=== PATIENT | male | born 1955 | race Caucasian/White ===

== ENCOUNTER → 2021-10-13 11:48 | Outpatient (CLI) | payer MEDICARE, SELFPAY ==
[2021-10-13 14:40] LABS: Free T4 (Free Thyroxine) 1.31 ng/dl (0.78-2.19)
[2021-10-13 14:54] LABS: Thyroid Stimulating Hormone 0.55 uIU/mL (0.465-4.68)
== END ==
PROVIDERS: Visit Provider Internal Medicine
DX: E03.9 Hypothyroidism, unspecified (principal)
CPT/HCPCS: 36415; 84439; 84443

== ENCOUNTER → 2022-03-18 09:54 | Outpatient (CLI) | payer MEDICARE, SELFPAY ==
[2022-03-18 11:16] LABS: Basophils # 0.1 K/mm3 (0-0.2); Basophils % 2.3 % (0.1-2.0); Eosinophils # 0.1 K/mm3 (0.0-0.4); Eosinophils % 1.4 % (0.1-12.0); Hematocrit 51.5 % (42.0-52.0); Hemoglobin 16.6 g/dL (14.1-18.0); Lymphocytes # 1.1 K/mm3 (0.7-4.5); Lymphocytes % 23.9 % (10-50); Mean Corpuscular HGB Conc 32.2 g/dL (31.8-35.4); Mean Corpuscular Hemoglobin 32.3 pg (27.0-31.2); Mean Corpuscular Volume 100.3 fl (80-94); Mean Platelet Volume 8.4 fl (7.4-10.4); Monocytes # 0.4 K/mm3 (0.1-1.0); Monocytes % 8.4 % (1.7-9.3); Neutrophils # 2.8 K/mm3 (1.8-7.8); Neutrophils % 64.1 % (37.0-80.0); Platelet Count 345 K/mm3 (142-424); Red Blood Count 5.13 M/mm3 (4.60-6.20); Red Cell Distribution Width 13.1 % (11.5-17.5); White Blood Count 4.4 K/mm3 (4.8-10.8)
[2022-03-18 11:25] LABS: Microalbumin/Creatinine Ratio 26.1
[2022-03-18 11:29] LABS: Creatinine,Urine Random 34 mg/dL (Not Estab.)
[2022-03-18 12:03] LABS: Alanine Aminotransferase 38 U/L (12-78); Albumin Level 4.3 g/dl (3.5-5.0); Albumin/Globulin Ratio 1.7 (1.1-1.8); Alkaline Phosphatase 81 U/L (38-126); Anion Gap 11.4 mEq/L (5-15); Aspartate Amino Transferase 38 U/L (17-59); Bilirubin,Total 0.8 mg/dl (0.2-1.3); Blood Urea Nitrogen 22 mg/dl (9-20); Calcium 9.3 mg/dl (8.4-10.2); Carbon Dioxide 26 mmol/L (22.0-30.0); Chloride 100 mmol/L (98-107); Chol/HDL Ratio 2.4 (1-3.5); Cholesterol 170 mg/dl (140-200); Estimated Glomerular Filt Rate 75 ml/min (>60); GFR (African American) 90 ML/MIN (>60); Globulin 2.6 g/dL (1.3-3.2); Glucose 144 mg/dl (74-100); HDL Cholesterol 71 mg/dl (40-60); Potassium 4.4 mmoL/L (3.5-5.1); Sodium 133 mmol/L (136-145); Total Protein,Serum 6.9 g/dl (6.3-8.2); Triglycerides 67 mg/dl (30-150); VLDL Cholesterol 13 mg/dL (0-40)
[2022-03-18 12:06] LABS: Direct LDL Cholesterol 72.43 mg/dL (100-129)
[2022-03-18 12:12] LABS: Free T4 (Free Thyroxine) 1.02 ng/dl (0.78-2.19)
[2022-03-18 12:26] LABS: Thyroid Stimulating Hormone 0.37 uIU/mL (0.465-4.68)
[2022-03-18 12:43] LABS: Hemoglobin A1C 7.2 % (4.0-6.0)
== END ==
PROVIDERS: Visit Provider Internal Medicine
DX: E10.65 Type 1 diabetes mellitus with hyperglycemia (principal); E10.3299 Type 1 diabetes mellitus with mild nonproliferative diabetic retinopathy without macular edema, unspecified eye; I10 Essential (primary) hypertension; E78.00 Pure hypercholesterolemia, unspecified; E03.9 Hypothyroidism, unspecified
CPT/HCPCS: 36415; 80053; 80061; 82043; 82570; 83036; 84439; 84443; 85025

== ENCOUNTER → 2022-07-09 08:29 | Outpatient (CLI) | payer MEDICARE, OTHER, SELFPAY ==
--- NOTE | 2022-07-09 | CA_ITS ---
APPROVED REPORT Exam: Exercise Treadmill Technologist: Marlys Kelly, Ht: 5 ft 11 in Wt: 238 lbs BSA: 2.27 m2 HR: 67 bpm BP: 151/67 mmHg Rhythm: NSR, slow R wave progression Medical History Medical History: HTN, Hyperlipidemia, Diabetes Medications: Amlodipine,,,,, Levothyroxine,,,,, RoSovastatin,,,,, INSULIN lispro,,,,, DexCOm g6,,,,, Autosoft 90,,,,, Cardiac Risk Factors: HTN, Hyperlipidemia, Diabetes (insulin) Stress Test Details Test: Allan HR Resting HR: 79 bpm Max Heart Rate (APMHR): 152.549309 bpm Max HR Achieved: 150 bpm Target HR (85% APMHR): 129.431691 bpm % of APMHR: 98.68 Recovery HR: 122 bpm BP Resting BP: 149/70 mmHg Max BP: 217/73 mmHg Recovery BP: 217.0/73.0 mmHg ECG Resting ECG: NSR, slow R wave progression Clinical Exercise duration: 06:00 min Highest Stage Achieved: Exercise capacity: 7.0 METs Stress ECG Conclusion During allan protocol pt exercised total of 6 minutes completing stage 2. Pt experinced mild chest pressure and dyspnea. Occasional vent couplet. Allowing for motion artifact the ST response to exercise is within normal. Mild chest discomfort, otherwise normal GXT. GXT only. Test Summary RECOVERY 01:00 0.0 0.0 128 . . . Stop exercise at 06:00 REST . . . . . . . Standing REST 04:01 0.0 0.0 79 . 149/ 70 . . Stage 1 01:00 10.0 1.7 104 . . . . Stage 1 02:00 10.0 1.7 119 . . . . Stage 1 03:00 10.0 1.7 123 . 210/ 80 . . Stage 2 01:00 12.0 2.5 135 . . . . Stage 2 02:00 12.0 2.5 144 . . . . Stage 2 03:00 12.0 2.5 140 . . . Stop exercise at 06:00 RECOVERY 01:00 0.0 0.0 128 . . . . RECOVERY 02:00 0.0 0.0 103 . . . . RECOVERY 03:00 0.0 0.0 101 . 217/ 73 . . RECOVERY 04:00 0.0 0.0 93 . 200/ 67 . . RECOVERY 05:00 0.0 0.0 90 . 162/ 65 . . RECOVERY 05:15 0.0 0.0 87 . 162/ 65 . . Electronically signed by : Renato Barillas MD 07/10/2022 21:42:51
== END ==
PROVIDERS: PCP Family Medicine; Visit Provider Family Medicine
DX: R07.89 Other chest pain (principal)
CPT/HCPCS: 93017

== ENCOUNTER 2022-07-18 11:12 | Emergency (ER) | payer MEDICARE, OTHER, SELFPAY ==
[2022-07-18 11:23] VITALS: BP 152/65; PULSE 62; RESP 18; TEMP 36.9; O2SAT 100; BMI 32.8
--- NOTE | 2022-07-18 11:23 | XR_ITS ---
PROCEDURE INFORMATION: Exam: XR Lumbosacral Spine Exam date and time: 07/18/2022 11:32 AM Age: 67 years old Clinical indication: Injury or trauma; Blunt trauma (contusions or hematomas); Injury details: Fall 3 days ago, HX of compression fxs at l1 and l3; Additional info: Pain TECHNIQUE: Imaging protocol: Radiologic exam of the lumbosacral spine. Views: 2 or 3 views. COMPARISON: No relevant prior studies available. FINDINGS: Bones/joints: Remote appearing compressions at L1 and L3, known by history. No acute fracture. Multilevel facet arthropathy. Disc space narrowing most significant at L5-S1. Soft tissues: Unremarkable. IMPRESSION: Remote appearing compressions at L1 and L3, known by history. No acute fracture.
[2022-07-18 11:46] VITALS: BP 152/65; PULSE 62; RESP 18; TEMP 36.9; O2SAT 100; BMI 32.8
--- NOTE | 2022-07-18 11:49 | HMH.EDUTC ---
[facility] [place] Disposition Clinical Impression: Back pain Qualifiers: Back pain location: low back pain Chronicity: acute Back pain laterality: bilateral Sciatica presence: with sciatica Sciatica laterality: bilateral sciatica Qualified Code(s): M54.42 - Lumbago with sciatica, left side; M54.41 - Lumbago with sciatica, right side Disposition: Still a Patient Condition on Discharge: Good Referrals: Renny Hollis MD [Primary Care Provider] - Time of Disposition: 11:57 (sent to ed report to william) Medical Decision Making - Ramon Inquiry Pt receiving controlled substance: No Vital Signs: 07/18/22 11:23 07/18/22 11:46 Temperature 98.4 F 98.4 F Temperature Source Oral Oral Pulse Rate [Radial] 62 62 Respiratory Rate 18 18 Blood Pressure [Right Arm] 152/65 H 152/65 H Blood Pressure Mean [Right Arm] 94 94 Blood Pressure Source [Right Arm] Automatic Cuff Automatic Cuff Blood Pressure Position [Right Arm] Sitting Sitting 02 Sat by Pulse Oximetry 100 100 Oxygen Delivery Method Room Air Room Air Orders (Tests/Meds): ORDERS Category Date Time Status XR lumbar spine 2-3V Stat Exams 07/18/22 11:23 Taken [facility] [place] HPI - General Chief complaint: Urgent Treatment Center Stated complaint: AO @home 07/15/22 back pain Time Seen by Provider: 07/18/22 11:49 Mode of Arrival: Ambulatory Source of Information: Patient Limitations: No Limitations Description of Symptoms (Recalled from Triage Doc. by RN): FALL ON WEDNESDAY LANDING ON BUTTOCKS, INCREASED BACK PAIN. HX OF COMPRESSION FRACTURES. NO LOSS OF BOWEL OR BLADDER. HEENT Symptoms (Recalled from RN notes): No Resp Symptoms (Recalled from RN notes): No Skin Symptoms (Recalled from RN notes): No MS Symptoms (Recalled from RN notes): Yes Functional Status (Recalled from RN notes): WNL - History of Present Illness Provider Complaint: 67 yr old male presnets for low back pain. pt states he fell on and the pain has increased. pt states he has nerve pain running down both legs. no loss of bowel or bladder - Related Data Home Medications Medication Instructions Recorded Confirmed blood-glucose sensor See Rx Instructions .ROUTE 07/07/22 07/14/22 infusion set for insulin pump See Rx Instructions .ROUTE 07/07/22 07/14/22 insulin lispro 100 unit/mL 1 sliding scale dose SQ 07/07/22 07/14/22 subcutaneous solution USEASDIRECTD levothyroxine 137 mcg capsule 137 mcg PO DAILY 07/07/22 07/14/22 rosuvastatin 40 mg tablet 40 mg PO DAILY 07/07/22 07/14/22 losartan 100 mg tablet 100 mg PO DAILY tab 07/14/22 07/14/22 Previous Rx's Medication Instructions Recorded hydrochlorothiazide 12.5 mg tablet 12.5 mg PO DAILY #30 tab 07/14/22 Allergies Allergy/AdvReac Type Severity Reaction Status Date / Time No Known Allergies Allergy Verified 07/14/22 12:55 - Worker's Comp Is this a Worker's Comp case?: No [facility] History - Hepatitis A Screen Attestation statement:: This patient has been screened for Hepatitis A risk factors. I have reviewed the patient's past medical history: Yes Medical History: Reports:: Diabetes Mellitus Type 1, Hyperlipidemia, Hypertension Other Medical History: Reports: Hypothyroidism Other Surgeries: Yes: Colonoscopy, Hernia Repair Comment: BREE shoulder-rotator cuff repair - Social History Smoking Status: Former smoker Alcohol Intake: former Substance Use Type: denies use Occupational Status: retired Housing: house Household Members: spouse Family Hx:: Cancer ROS Obtained: Yes Systems reviewed as appropriate & no additional complaints - Constitutional Constitutional: Reports system reviewed and no additional complaints, except as docu, Denies fever(s) - Eyes Eyes: Reports system reviewed and no additional complaints, except as docu, Denies change in vision - ENT Ears, Nose, Mouth, and Throat: Reports system reviewed and no additional complaints, except as docu, Denies poor balance - Cardiovascular Cardiovascular: Reports system revi
[2022-07-18 11:54] VITALS: BP 154/74; PULSE 62; RESP 18; TEMP 36.9; O2SAT 98; BMI 32.8
[2022-07-18 11:59] VITALS: BMI 32.8
[2022-07-18 12:00] VITALS: BP 154/74; PULSE 62; RESP 16; O2SAT 99
--- NOTE | 2022-07-18 12:00 | CT_ITS ---
PROCEDURE INFORMATION: Exam: CT Lumbar Spine Without Contrast Exam date and time: 07/18/2022 12:14 PM Age: 67 years old Clinical indication: Pain and injury or trauma; Fall; Blunt trauma (contusions or hematomas); Low back pain; Additional info: Pain/fall, HX of compression fxs at l1 and l3 TECHNIQUE: Imaging protocol: Computed tomography of the lumbar spine without contrast. Radiation optimization: All CT scans at this facility use at least one of these dose optimization techniques: automated exposure control; mA and/or kV adjustment per patient size (includes targeted exams where dose is matched to clinical indication); or iterative reconstruction. COMPARISON: CR XR LUMBAR SPINE 2-3V 07/18/2022 11:32 AM FINDINGS: Bones/joints: Severe, chronic compression fractures at L1 and L3. No acute fracture. Discs/Spinal canal/Neural foramina: Retropulsion of bone at the L1 level 7 mm into the lumbar canal. Prominent multilevel facet arthropathy. Soft tissues: Unremarkable. IMPRESSION: 1. Severe, chronic compression fractures at L1 and L3. Retropulsion of bone at the L1 level 7 mm into the lumbar canal. 2. No acute fracture.
--- NOTE | 2022-07-18 12:08 | PC.NURSE ---
ED MD AT BEDSIDE FOR EVALUATION
--- NOTE | 2022-07-18 12:11 | HMH.EDGENADL ---
ED Disposition Clinical Impression: Back pain Qualifiers: Back pain location: low back pain Chronicity: acute Back pain laterality: bilateral Sciatica presence: with sciatica Sciatica laterality: bilateral sciatica Qualified Code(s): M54.42 - Lumbago with sciatica, left side Disposition: Home, Self-Care Condition on Discharge: Good Instructions: DI for Low Back Pain Additional Instructions: [place] as needed for pain. Additional instructions for BACK PAIN: See your physician as soon as possible for further evaluation. Return immediately if back pain becomes intolerable, or if fever, numbness or weakness of your legs, loss of control of your bowels or bladder. Additional instructions for CONTROLLED SUBSTANCES: You have been prescribed a medication that is a controlled substance. Controlled substances include pain medications known as opiates and sedative nerve medications known as benzodiazepines. Tramadol, fioricet, and gabapentin are also controlled substances. Some common opiates include: Codeine (such as Tylenol #3) Hydrocodone (Vicodin, Lortab, Lorcet, [place]) Oxycodone (Percocet, Percodan, Oxycodone, Oxy IR) Some common benzodiazepines include: Diazepam (Valium) Lorazepam (Ativan) Alprazolam (Xanax) Clonazepam (Klonopin) Oxazepam (Serax) All of these controlled substances are highly addictive and frequently abused. Misuse can and frequently does lead to addiction as well as overdose and . Medication should be stored in a locked cabinet or other secure storage unit. Do not store the medication in a motor vehicle. Short term supplies, 3 days or less, are prescribed because of the highly addictive nature of the medication. Any of the controlled substance medication NOT taken should be disposed of properly and NOT SAVED. The recommended method of disposing of unused medications is: Place the medicines in a sealable plastic bag. If the medicine is a solid, crush it or add water to dissolve it. Add something undesirable (cat litter, coffee grounds, etc.) Dispose of sealed bag in household trash Do not flush or pour unused medicines down a sink or drain. Controlled substances should not be shared, given away or sold. Because of the addictive nature and frequent abuse, these medications are sometimes stolen. These medications should be kept in a safe place where they cannot be stolen. Do not keep them in your car or purse. Lost or stolen prescriptions for controlled substances WILL NOT BE REFILLED in this emergency department, regardless of whether a police report was filed. Prescriptions: Hydrocod/Acet 5/325 mg [[place] 5/325mg tablet] 1 tab PO Q6HP PRN #10 tab PRN Reason: Pain Transmission Status: Received by [id number] Referrals: Renny Hollis MD [Primary Care Provider] - - Critical Care Critical Care Time: No Attestation: On 07/18/22, the high probability of a clinically significant, sudden or life threatening deterioration of the following system(s) required my full and direct attention, intervention and personal management. The time I documented below is in addition to time spent performing reported procedures but includes the following listed in this critical care notation. Medical Decision Making - Ramon Inquiry Pt receiving controlled substance: Yes Ramon was queried for this patient: Yes Risks and benefits of using a controlled substance: were discussed with pt by me Vital Signs: 07/18/22 11:23 07/18/22 11:46 07/18/22 11:54 Temperature 98.4 F 98.4 F 98.4 F Temperature Source Oral Oral Oral Pulse Rate Pulse Rate [Radial] 62 62 62 Respiratory Rate 18 18 18 Blood Pressure Blood Pressure [Right Arm] 152/65 H 152/65 H 154/74 H Blood Pressure Mean Blood Pressure Mean [Right Arm] 94 94 100 Blood Pressure Source [Right Arm] Automatic Cuff Automatic Cuff Automatic Cuff Blood Pressure Position [Right Arm] Sitting Sitting Sitting 02 Sat by Pulse O
--- NOTE | 2022-07-18 12:22 | PC.NURSE ---
PT TO CT AT THIS TIME
--- NOTE | 2022-07-18 12:29 | PC.NURSE ---
PT RETURNED FROM CT
[2022-07-18 13:00] VITALS: BP 149/74; PULSE 60; RESP 17; O2SAT 97
[2022-07-18 13:20] VITALS: BP 149/74; PULSE 60; RESP 18; TEMP 36.8; O2SAT 98
--- NOTE | 2022-07-18 13:22 | PC.NURSE ---
Rounded on patient, he voices no needs at this time. His linda llight is within reach and he is aware that we are waiting on test results.
--- NOTE | 2022-07-18 15:50 | PC.NURSE ---
pt called wanting his medicine to be called into [facility] in [place] [facility] to [facility]. Called [facility] and left a message no to fill this prescription due to it being transferred to [facility] in [place] per MD verbal order.
== END 2022-07-18 13:20 | disposition home or self-care (01) ==
LOC: UTC 11:27 → ER 11:54
PROVIDERS: Emergency Provider Emergency Medicine; PCP Family Medicine
DX: M54.42 Lumbago with sciatica, left side (principal)
CPT/HCPCS: 72100; 72131; 99284

== ENCOUNTER → 2022-08-28 | Outpatient (CLI) | payer MEDICARE, OTHER, SELFPAY ==
[2022-08-28 18:21] LABS: Hemoglobin A1C 6.4 % (4.0-6.0)
[2022-08-28 18:27] LABS: Alanine Aminotransferase 73 U/L (12-78); Albumin/Globulin Ratio 1.5 (1.1-1.8); Alkaline Phosphatase 559 U/L (38-126); Aspartate Amino Transferase 87 U/L (17-59); Bilirubin,Total 1.5 mg/dl (0.2-1.3); Blood Urea Nitrogen 13 mg/dl (9-20); Calcium 9.4 mg/dl (8.4-10.2); Carbon Dioxide 24 mmol/L (22.0-30.0); Chloride 91 mmol/L (98-107); Chol/HDL Ratio 2.6 (1-3.5); Cholesterol 173 mg/dl (140-200); Estimated Glomerular Filt Rate 84 ml/min (>60); GFR (African American) 102 ML/MIN (>60); Globulin 2.7 g/dL (1.3-3.2); Glucose 204 mg/dl (74-100); HDL Cholesterol 66 mg/dl (40-60); Sodium 129 mmol/L (136-145); Total Protein,Serum 6.7 g/dl (6.3-8.2); Triglycerides 110 mg/dl (30-150); VLDL Cholesterol 22 mg/dL (0-40)
[2022-08-28 18:29] LABS: Basophils # 0.1 K/mm3 (0-0.2); Eosinophils # 0.1 K/mm3 (0.0-0.4); Eosinophils % 1.5 % (0.1-12.0); Hematocrit 48.5 % (42.0-52.0); Hemoglobin 16.6 g/dL (14.1-18.0); Lymphocytes # 0.7 K/mm3 (0.7-4.5); Mean Corpuscular HGB Conc 34.3 g/dL (31.8-35.4); Mean Corpuscular Hemoglobin 32.9 pg (27.0-31.2); Mean Corpuscular Volume 95.7 fl (80-94); Mean Platelet Volume 9.6 fl (7.4-10.4); Monocytes # 0.7 K/mm3 (0.1-1.0); Monocytes % 8.3 % (1.7-9.3); Neutrophils # 6.9 K/mm3 (1.8-7.8); Neutrophils % 81.2 % (37.0-80.0); Platelet Count 292 K/mm3 (142-424); Red Blood Count 5.06 M/mm3 (4.60-6.20); Red Cell Distribution Width 12.9 % (11.5-17.5); White Blood Count 8.5 K/mm3 (4.8-10.8)
[2022-08-28 18:38] LABS: Direct LDL Cholesterol 83.74 mg/dL (100-129)
[2022-08-28 18:57] LABS: Thyroid Stimulating Hormone 0.88 uIU/mL (0.465-4.68)
== END ==
PROVIDERS: Student in an Organized Health Care Education/Training Program; PCP Family Medicine; Visit Provider Family Medicine
DX: R10.9 Unspecified abdominal pain (principal); E10.9 Type 1 diabetes mellitus without complications; I10 Essential (primary) hypertension; E03.9 Hypothyroidism, unspecified; Z79.4 Long term (current) use of insulin
CPT/HCPCS: 80053; 80061; 83036; 84443; 85025

== ENCOUNTER → 2022-09-02 14:08 | Outpatient (CLI) | payer MEDICARE, OTHER, SELFPAY ==
--- NOTE | 2022-09-02 14:22 | CT_ITS ---
FINAL REPORT TECHNIQUE: Axial images through the abdomen and pelvis were performed without contrast. This study was performed with techniques to keep radiation doses as low as reasonably achievable, (ALARA). Individualized dose reduction techniques using automated exposure control or adjustment of mA and/or kV according to the patient's size were employed. CLINICAL HISTORY: Ventral Hernia, Abd pain FINDINGS: ABDOMEN: There is a 2 mm nodule in the left lower lobe, nonspecific. The heart size is normal. There are numerous masses throughout the liver consistent with widespread hepatic metastatic disease. Masses measure up to 2.6 cm in diameter. The gallbladder is present. There is a nonspecific right adrenal nodule measuring 20 mm, may represent an adenoma versus metastases. There is fullness in the tail of the pancreas, mass in this region is not excluded. The spleen is normal. The aorta is normal in caliber. There is no significant free fluid or adenopathy. There is no nephrolithiasis. There is no hydronephrosis. There is a midline supraumbilical hernia containing fat. The orifice measures 6.6 cm. Hernia sac measures 9.2 cm in transverse dimension. PELVIS: The appendix is not identified. There is mild wall thickening of the distal sigmoid colon, nonspecific. There is bladder wall thickening, likely inflammatory. There are chronic appearing L1 and L3 severe compression fractures. There is a subacute appearing horizontal fracture of the L2 vertebral body. There are moderate degenerative changes. There is no significant free fluid or adenopathy. IMPRESSION: Findings consistent with widespread hepatic metastatic disease. Maya Nuñez, medical laboratory technologist was notified of findings on 09/02/2022 at 4:47 p.m. Fullness of the pancreatic tail, mass in this region is not excluded. Consider pancreatic protocol CT. Reviewed, Interpreted and Dictated by Puma Mckeon III, MD Transcribed by Doris Schuster Authenticated and [facility]
[2022-09-02 16:57] LABS: Chloride 94 mmol/L (98-107); Potassium 4.3 mmoL/L (3.5-5.1); Sodium 131 mmol/L (136-145)
[2022-09-02 17:00] LABS: Alanine Aminotransferase 66 U/L (12-78); Albumin Level 4.1 g/dl (3.5-5.0); Albumin/Globulin Ratio 1.5 (1.1-1.8); Alkaline Phosphatase 541 U/L (38-126); Anion Gap 15.3 mEq/L (5-15); Aspartate Amino Transferase 99 U/L (17-59); Bilirubin,Total 1.9 mg/dl (0.2-1.3); Blood Urea Nitrogen 14 mg/dl (9-20); Carbon Dioxide 26 mmol/L (22.0-30.0); Estimated Glomerular Filt Rate 84 ml/min (>60); GFR (African American) 102 ML/MIN (>60); Globulin 2.8 g/dL (1.3-3.2); Total Protein,Serum 6.9 g/dl (6.3-8.2)
[2022-09-02 17:01] LABS: Calcium 9.3 mg/dl (8.4-10.2); Glucose 237 mg/dl (74-100)
[2022-09-02 17:48] LABS: Gamma Glutamyl Transpeptidase 492 U/L (15-73)
== END ==
PROVIDERS: PCP Family Medicine; Visit Provider Student in an Organized Health Care Education/Training Program
DX: E78.5 Hyperlipidemia, unspecified (principal); K46.9 Unspecified abdominal hernia without obstruction or gangrene; R10.9 Unspecified abdominal pain
CPT/HCPCS: 36415; 74176; 80053; 82977